=== PATIENT | female | born 1935 | race Caucasian/White ===

== ENCOUNTER 2019-05-31 08:03 | Inpatient (IN) | payer MEDICARE, BC ==
[~2019-05-31] VITALS: Ht 149.9 cm; Wt 48.2 kg
[~2019-05-31 08:03] MED LIST: ACET500C5 PO; ASPI325T30 PO; ATOR10TA65 PO; CALC1TAB80 PO; CEPH-443 PO; DEXL60CA2 PO; DICY10CA40 PO; EZET10TA31 PO; HYDR-3672 PO; IBUP-1542 PO; ISOS30TA67 PO; NAPR-985 PO; SUCR1TAB56 PO; TRAM50TA2 PO; VERA240C10 PO
[2019-05-31] MEDS ORDERED: IOHEXOL 100 ML ONE (09:25)
[2019-05-31] MEDS ORDERED: SOD CHLORIDE 0.9% 100 ML ONE (09:25)
--- NOTE | 2019-05-31 09:55 | ERD ---
ER Documentation Chief Complaint Chief Complaint C/O DIZZINESS, CP WITH PAIN RADIATES TO NECK, LEFT ARM SINCE WOKE UP HPI 84-year-old female brought to the emergency department by her daughter for evaluation of chest discomfort. Patient started by having neck discomfort yesterday. She was seen and evaluated by her doctor and recommended an MRI which is pending. She had no trauma associated with the neck pain or other symptoms. Today she then began developing a nonspecific chest discomfort in the left upper part of her chest in one specific location. It did not radiate. Of note, the triage note indicates that it radiates to her neck, but this is actually 2 separate pain that she is having as she describes it. She reports no shortness of breath, palpitations, diaphoresis. She reports no fevers, chills, cough, hemoptysis. ROS All systems reviewed and are negative except as per history of present illness. Medications Home Meds Active Scripts Acetaminophen* (Tylophen*) 500 Mg Capsule, 1 CAP PO Q6H PRN for PAIN AND OR ELEVATED TEMP, #20 CAP Prov:BETINA CHENG NP 10/25/16 Tramadol HCl (Tramadol HCl) 50 Mg Tablet, 50 MG PO Q6 PRN for SEVERE PAIN LEVEL 7-10, #20 TAB Prov:BETINA CHENG NP 10/25/16 Sucralfate* (Carafate*) 1 Gm Tab, 1 GM PO QID for GASTROINTESTINAL UPSET, #30 TAB Prov:VAMSHI CASILLAS MD 06/24/16 Naproxen* (Naprosyn*) 500 Mg Tablet, 500 MG PO BID PRN for PAIN AND/OR INFLAMMATION, #30 TAB Prov:VAMSHI CASILLAS MD 06/24/16 Acetaminophen* (Tylophen*) 500 Mg Capsule, 1 CAP PO Q6H PRN for PAIN AND OR ELEVATED TEMP, #20 CAP Prov:BETINA CHENG NP 05/17/16 Dicyclomine HCl (Dicyclomine HCl) 10 Mg Capsule, 10 MG PO QID, #20 CAP Prov:BETINA CHENG NP 05/17/16 Cephalexin* (Keflex*) 500 Mg Capsule, 500 MG PO Q6 for 7 Days, #28 CAP Prov:BETINA CHENG NP 05/17/16 Ibuprofen* (Motrin*) 600 Mg Tab, 600 MG PO Q8 for PAIN, #30 TAB Prov:ANGIE ONOFRE MD 03/11/16 Cephalexin* (Keflex*) 500 Mg Capsule, 500 MG PO TID for 5 Days, CAP Prov:ANGIE ONOFRE MD 03/11/16 Atorvastatin Calcium (Atorvastatin Calcium) 10 Mg Tab, 20 MG PO HS, #60 TAB Prov:THADDEUS DHILLON MD 06/30/15 Reported Medications Isosorbide Mononitrate* (Isosorbide Mononitrate*) 30 Mg Tab.er.24h, 30 MG PO DAILY, TAB 06/24/16 Hydralazine Hcl* (Hydralazine Hcl*) 50 Mg Tab, 100 MG PO TID, #180 TAB 06/24/16 Aspirin* (Aspirin*) 325 Mg Tablet, 325 MG PO DAILY, TAB 06/28/15 Ezetimibe* (Zetia*) 10 Mg Tablet, 10 MG PO DAILY, TAB 06/28/15 Calcium Carbonate/Vitamin D3 (Oysco 500+D Tablet) 1 Tab Tablet, 1 TAB PO BID 06/28/15 Verapamil Hcl* (Verelan*) 240 Mg Cap24h.pel, 240 MG PO DAILY, CAP 06/28/15 Dexlansoprazole (Dexilant) 60 Mg Cap.mp, 60 MG PO DAILY, CAP 06/28/15 Allergies Allergies: Coded Allergies: olmesartan (Verified Allergy, Severe, 03/11/16) BODY SWOLLEN rice (Verified Allergy, Unknown, SOB, 03/11/16) PMhx/Soc History of Surgery: No Anesthesia Reaction: No Hx Neurological Disorder: No Hx Respiratory Disorders: No Hx Cardiac Disorders: Yes (htn; cholesterol) Hx Psychiatric Problems: No Hx Alcohol Use: No Hx Substance Use: No Hx Tobacco Use: No Smoking Status: Never smoker FmHx Noncontributory with supportive family at the bedside Physical Exam Vitals Vital Signs Date Temp Pulse Resp B/P (MAP) Pulse Ox O2 O2 Flow FiO2 Time Delivery Rate 05/31/19 64 23 117/83 100 Room Air 08:47 (94) 05/31/19 97.9 63 18 142/70 95 08:15 (94) Physical Exam GENERAL: Frail, elderly female in no acute distress HEENT: Pupils equal, round, and reactive to light. EOMI. There is no scleral icterus. NECK: C-spine is soft and supple, there is no meningismus. There is no cervical lymphadenopathy. LUNGS: Clear to auscultation bilaterally. There are no rales, wheezes or rhonchi. Point tenderness to the left upper chest wall HEART: Regular rate and rhythm, no murmurs, clicks, rubs or gallops. ABDOMEN: Soft, non-tender, non-distended. There are bowel sounds in all four quadrants. No rebound or guarding. EXTREMITIES: There is no peripheral cyanosis or edema. No focal swelling or erythema. NEURO: The patient moves all four extremities with 5/5 strength. Cranial nerves II - XII are intact. Normal gait. Alert and oriented SKIN: There is no apparent rash or petechiae. HEME/LYMPHATIC: There is no evidence of excessive bruising or lymphedema. PSYCHIATRIC: The patient does not appear anxious or depressed. Result Diagram: 05/31/19 0839 05/31/19 0839 Results 24 hrs Laboratory Tests Test 05/31/19 08:39 White Blood Count 7.0 10^3/ul Red Blood Count 4.43 10^6/ul Hemoglobin 11.8 g/dl Hematocrit 35.7 % Mean Corpuscular Volume 80.6 fl Mean Corpuscular Hemoglobin 26.6 pg Mean Corpuscular Hemoglobin Concent 33.1 g/dl Red Cell Distribution Width 13.2 % Platelet Count 322 10^3/UL Mean Platelet Volume 9.5 fl Immature Granulocytes % 0.300 % Neutrophils % 56.7 % Lymphocytes % 28.1 % Monocytes % 11.0 % Eosinophils % 2.9 % Basophils % 1.0 % Nucleated Red Blood Cells % 0.0 /100WBC Immature Granulocytes # 0.020 10^3/ul Neutrophils # 4.0 10^3/ul Lymphocytes # 2.0 10^3/ul Monocytes # 0.8 10^3/ul Eosinophils # 0.2 10^3/ul Basophils # 0.1 10^3/ul Nucleated Red Blood Cells # 0.0 10^3/ul Sodium Level 138 mmol/L Potassium Level 3.7 mmol/L Chloride Level 99 mmol/L Carbon Dioxide Level 30 mmol/L Anion Gap 9 Blood Urea Nitrogen 13 mg/dl Creatinine 0.82 mg/dl Est Glomerular Filtrat Rate mL/min mL/min Glucose Level 104 mg/dl Calcium Level 9.2 mg/dl Total Bilirubin 0.6 mg/dl Direct Bilirubin 0.00 mg/dl Indirect Bilirubin 0.6 mg/dl Aspartate Amino Transf (AST/SGOT) 26 IU/L Alanine Aminotransferase (ALT/SGPT) 26 IU/L Alkaline Phosphatase 68 IU/L Troponin I 0.028 ng/ml Total Protein 7.0 g/dl Albumin 4.1 g/dl Globulin 2.90 g/dl Albumin/Globulin Ratio 1.41 Current Medications Medications Dose Sig/Hawk Start Time Status Last (Trade) Ordered Route PRN Stop Time Admin Dose Reason Admin IV Flush 10 ml STK-MED 05/31/19 DC 05/31/19 (NS 10 ml) ONCE .ROUTE 09:05/31/19 09:43 09:26 Sodium 100 ml @ ud STK-MED 05/31/19 DC 05/31/19 Chloride ONCE .ROUTE 09:05/31/19 09:43 09:26 Iohexol 100 ml @ ud STK-MED 05/31/19 DC 05/31/19 ONCE .ROUTE 09:25 05/31/19 09:43 09:26 Procedures/MDM Patient was taken to a room, seen and evaluated. Comfort measures were initiated. Diagnostic tests were ordered and reviewed. 3 LEAD RHYTHM STRIP: Normal sinus rhythm without ectopy EK lead EKG reviewed by myself: Normal Sinus Rhythm Left bundle branch block No ST elevation, depression, or T wave inversion Impression: Left bundle branch block RADIOLOGY: Reviewed with the radiologist REEVALUATION: 0955: Diagnostic tests were appreciated discussed with the patient and her family. The patient remained comfortable and stable. Patient and family were offered inpatient observation for serial troponins, but they felt comfortable that the patient was feeling better and wished to take the patient home. MEDICAL DECISION MAKING: Patient presents with chest pain of uncertain etiology. Differential diagnosis considered includes acute myocardial infarction, pulmonary embolism, as well as vascular and pulmonary concerns. I have reviewed the patients clinical risk factors, EKG, lab studies and imaging. At this time, her EKG demonstrates a left bundle branch block which makes it somewhat difficult to interpret her symptoms. Her troponin is negative. The constellation of symptoms do not appear to be consistent with an acute coronary event and the CT scan is ruled out significant thromboembolism, pneumonia or other high-risk concerns. At this time, patient appears to be comfortable and does not wish to stay for further observation and appears to be appropriate for discharge. Departure Diagnosis: Primary Impression: Chest pain Condition: Stable Patient Instructions: Chest Pain, Uncertain Cause Additional Instructions: Consulte a yu mdico para el seguimiento segn lo discutido. Lleve feliciano copia de los resultados de yu prueba, si corresponde, a esta visita de seguimiento. Consulte a yu mdico o regrese aqu si giovanny sntomas no mejoran favian se esperaba. En cualquier momento, regrese al departamento de emergencias por cualquier cambio o empeoramiento en giovanny sntomas. MATTHEW LAWTON May 31, 2019 09:55
[2019-05-31] MEDS ORDERED: DOXA2TAB PO (10:01)
[2019-05-31] MEDS ORDERED: ALEN70TA5 PO (10:02)
[2019-05-31] MEDS ORDERED: GABA300C16 PO (10:02)
[2019-05-31] MEDS ORDERED: CARV3.1260 PO (10:02)
[2019-05-31] MEDS ORDERED: CALC-686 PO (10:03)
[2019-05-31] MEDS ORDERED: PANT40TA4 PO (10:03)
[2019-05-31] MEDS ORDERED: HYDR25TA6 PO (10:04)
[2019-05-31] MEDS ORDERED: MONT10TA24 PO (10:04)
[2019-05-31] MEDS ORDERED: FER325 PO (10:04)
[2019-05-31] MEDS ORDERED: AMLO5TAB4 PO (10:04)
[2019-05-31] MEDS ORDERED: ACETAMINOPHEN 325 MG TAB PO PRN ×2 (10:30)
[2019-05-31] MEDS ORDERED: ONDANSETRON 4 MG INJ IV PRN ×2 (10:30)
[2019-05-31] MEDS ORDERED: morphine 2 MG INJ IV PRN (10:30)
[2019-05-31] MEDS ORDERED: NACL 0.9% 3 ML SYG IV SCH (10:30)
[2019-05-31] MEDS ORDERED: HYDROCODONE/APAP (5/325) TAB PO PRN (10:30)
--- NOTE | 2019-05-31 14:19 | HP ---
Date/Time of Note Date/Time of Note DATE: 05/31/19 TIME: 14:19 Assessment/Plan VTE Prophylaxis Pharmacological prophylaxis: other Lines/Catheters IV Catheter Type (from Nrsg): Peripheral IV Assessment/Plan Hospital Course Patient is a female with past medical history significant for hypertension, GERD, anemia who presents to [facility] for new onset chest pain with radiation to her left arm. Patient states that she woke t his morning with sensation of left-sided chest pain subsequently radiated to her arm. Currently patient has minimal chest pain but with no residual arm effects. Of note patient recently did go to a primary care provider for a headache which has since significantly resolved. Patient denies any changes to her medications, diets or any new physical activity, patient denies severe shortness of breath, nausea, vomiting, abdominal pain, bowel or bladder dysfunction, leg pain Objective Physical exam General: Patient is laying in bed and answers questions appropriately Mentation: Patient is alert and oriented 4, Head: Normocephalic atraumatic Eyes: EOMI, pupils reactive to light Neck: Supple, nontender, midline Respiratory: Clear to auscultation bilaterally Cardiovascular: regular rate, no obvious murmurs Gastrointestinal: non-tender to palpation, bowel sounds heard. Neurological: Moves all extremities spontaneously Muscular skeletal: Pain to palpation of left chest wall Assessment and plan Chest pain -Aspirin, statin -Continue to trend troponins -Cardiology consulted for questionable new versus old left bundle branch block -Chest pain is very likely muscular skeletal as patient's pain can be reproduced with palpation of the chest -Monitor closely -Pain control as needed -Echocardiogram Headache with neck pain, resolving -Patient went to see her PCP yesterday for this problem, this problem is resolving -Patient has MRI scheduled outpatient -No acute worsening issues with this issue. Hypertension -Continue home meds GERD -Continue home meds Anemia -Monitor closely Possible pulmonary hypertension -Seen on CT angiogram -Monitor Disposition -Cardiology consult pending, continue to trend troponins. Result Diagram: 05/31/19 0839 05/31/19 0839 Results 24hrs Laboratory Tests Test 05/31/19 08:39 White Blood Count 7.0 Red Blood Count 4.43 Hemoglobin 11.8 L Hematocrit 35.7 L Mean Corpuscular Volume 80.6 L Mean Corpuscular Hemoglobin 26.6 L Mean Corpuscular Hemoglobin Concent 33.1 Red Cell Distribution Width 13.2 Platelet Count 322 Mean Platelet Volume 9.5 # Immature Granulocytes % 0.300 Neutrophils % 56.7 Lymphocytes % 28.1 Monocytes % 11.0 Eosinophils % 2.9 Basophils % 1.0 Nucleated Red Blood Cells % 0.0 Immature Granulocytes # 0.020 Neutrophils # 4.0 Lymphocytes # 2.0 Monocytes # 0.8 Eosinophils # 0.2 Basophils # 0.1 Nucleated Red Blood Cells # 0.0 Sodium Level 138 Potassium Level 3.7 Chloride Level 99 Carbon Dioxide Level 30 Anion Gap 9 Blood Urea Nitrogen 13 Creatinine 0.82 Est Glomerular Filtrat Rate mL/min Glucose Level 104 Calcium Level 9.2 Total Bilirubin 0.6 Direct Bilirubin 0.00 Indirect Bilirubin 0.6 Aspartate Amino Transf (AST/SGOT) 26 Alanine Aminotransferase (ALT/SGPT) 26 Alkaline Phosphatase 68 Troponin I 0.028 Total Protein 7.0 Albumin 4.1 Globulin 2.90 Albumin/Globulin Ratio 1.41 HPI/ROS Admit Date/Time Admit Date/Time PMH/Family/Social Past Medical History Medications Current Medications Amlodipine Besylate (Norvasc) 5 mg DAILY PO ; Start 06/01/19 at 09:00 Carvedilol (Coreg) 3.125 mg BID PO ; Start 05/31/19 at 21:00 Doxazosin Mesylate (Cardura) 2 mg HS PO ; Start 05/31/19 at 21:00 Ferrous Sulfate (Ferrous Sulfate (Ec)) 325 mg DAILY PO ; Start 06/01/19 at 09:00 Gabapentin (Neurontin) 300 mg DAILY PO ; Start 06/01/19 at 09:00 Hydrochlorothiazide (Hydrochlorothiazide) 25 mg DAILY PO ; Start 06/01/19 at 09:00 Montelukast Sodium (Singulair) 10 mg QHS PO ; Start 05/31/19 at 21:00 Pantoprazole (Protonix Tab) 40 mg AC BREAKFAST PO ; Start 06/01/19 at 07:00 IV Flush (NS 3 ml) 3 ml PER PROTOCOL IV ; Start 05/31/19 at 10:30 Ondansetron HCl (Zofran Inj) 4 mg Q6H PRN IV NAUSEA/VOMITING; Start 05/31/19 at 10:30 Acetaminophen (Tylenol Tab) 650 mg Q6H PRN PO .PAIN 1-3 OR TEMP; Start 05/31/19 at 10:30 Acetaminophen/ Hydrocodone Bitart ([place] (5/325)) 1 tab Q6H PRN PO .PAIN 4-6; Start 05/31/19 at 10:30 Morphine Sulfate (morphine) 2 mg Q4H PRN IV .PAIN 7-10; Start 05/31/19 at 10:30 Coded Allergies: olmesartan (Verified Allergy, Severe, 05/31/19) BODY SWOLLEN rice (Verified Allergy, Unknown, SOB, 05/31/19) Social History Smoking Status: Never smoker Exam/Review of Systems Vital Signs Vitals Vital Signs Date Temp Pulse Resp B/P (MAP) Pulse Ox O2 O2 Flow FiO2 Time Delivery Rate 05/31/19 68 23 127/66 98 Room Air 13:00 (86) 05/31/19 97.9 08:15 ANGIE MARCOS May 31, 2019 14:19
[2019-05-31] MEDS ORDERED: ASPIRIN 325 MG TAB PO ONE (14:30)
[2019-05-31 15:59] VITALS: BP 157/71; PULSE 91; RESP 20
[2019-05-31 16:16] VITALS: Ht 149.9 cm; Wt 48.2 kg
--- NOTE | 2019-05-31 17:09 | CONS ---
DATE OF ADMISSION: 05/31/2019 DATE OF CONSULTATION: TYPE OF CONSULTATION: Cardiology. REFERRING PHYSICIAN: Dr. Ananth Akhtar. REASON FOR EVALUATION: Precordial chest pain. HISTORY OF PRESENT ILLNESS: Ms. Alatorre is a pleasant 84-year-old, she is a [place]an speaking woman wi th history of hypertension, dyslipidemia, history of GERD in the past, who comes to the hospital for precordial chest pain. The patient has left-sided pressure-like sensation in the chest which subsequ ently resolved and then came back again. The patient says that Dr. Cottrell is her primary doctor. T he patient has an EKG which shows left bundle branch block, although I cannot locate an EKG in the art now, and I am going to try to obtain another one. When the patient presented, she still continue d to have mild chest discomfort. The patient will be treated for a presumed diagnosis of ACS. We ar e going to monitor her closely. I am going to initiate her medications in the form of beta blockers and anticoagulation. Will follow closely. Based on initial assessment here, it appears that the pat ient did not rule in for acute myocardial infarction. Will check another set of troponins and monito r closely. If patient rules out for acute myocardial infarction, will likely have to have inpatient risk stratification with a stress test. PAST MEDICAL HISTORY: 1. Hypertension. 2. Dyslipidemia. 3. History of gastroesophageal reflux disease. 4. Left bundle branch block, probably chronic. ALLERGIES: ALLERGIC TO LOSARTAN AND RICE. SOCIAL HISTORY: The patient does not smoke, does not drink, does not use drugs. FAMILY HISTORY: Positive for diabetes and hypertension. MEDICATIONS: Here include: 1. Amlodipine 5 mg a day. 2. Iron supplement. 3. Gabapentin. 4. Aspirin 81 mg daily. 5. b.i.d. 6. Hydrocodone. 7. Morphine sulfate. REVIEW OF SYSTEMS: CONSTITUTIONAL: No fevers, no chills, no recent weight change. HEENT: No JVD. CARDIAC: No chest pain reported now. RESPIRATORY: Short of breath. GASTROINTESTINAL: No nausea, vomiting. GENITOURINARY: No dysuria or hematuria. NEUROLOGIC: No focal neurologic deficit. PSYCHIATRIC: No known history of psychiatric disease. PHYSICAL EXAMINATION: VITAL SIGNS: Temperature is 97.9, heart rate 68, blood pressure is 120/76. GENERAL: She is thin woman in no acute distress, alert and oriented x3 in [place], aware of her cond ition. HEENT: Head is normocephalic. NECK: Supple. JVD 6-7 cm. HEART: Regular, soft, nontender murmur. PMI is nondisplaced. There is no thrill. LUNGS: Coarse at the base. ABDOMEN: Distended, bowel sounds are present. There is no hepatosplenomegaly. GENITOURINARY: Intact. EXTREMITIES: No cyanosis. Trace edema. LABORATORY DATA: Sodium 130, potassium 3.7, BUN is 13, creatinine is normal. Troponin 0.02. White blood cell count is 7.0, hemoglobin is 11.8, platelets 322. ECG read by me shows sinus rhythm with first-degree AV block and left bundle branch block. ASSESSMENT AND PLAN: 1. Precordial chest pain. The patient's precordial chest pain suggestive of angina. The patient ji s not ruled in for acute myocardial infarction now. I think for now, conservative treatment expected . We will check another set of troponins. If patient remains to be symptomatic, we will consider fu rther recertification with a stress test. 2. First-degree atrioventricular block. The patient on a small dose of beta faina, which is appro priate. Continue to monitor left bundle bunch block. Continue to follow. I doubt acute ischemic ev ent now with anterior myocardial infarction with block, likely chronic finding. We will follow up with a 2D echo. 3. Gastroesophageal reflux disease. Continue proton pump inhibitor therapy is indicated. 4. Dyslipidemia. We will check fasting lipids. I would like to thank Dr. Akhtar for referring this patient for my evaluation. Dictated By: OLU JACINTO MD ML/NTS Conf#: [id number] DID#: [id number] CC: ANANTH AKHTAR MD;*EndCC*
[2019-05-31 20:00] VITALS: BP 114/75; PULSE 74; RESP 18
[2019-05-31] MEDS: DOXAZOSIN 2 MG TAB PO SCH (20:10)
[2019-05-31] MEDS: ATORVASTATIN 80 MG TAB PO SCH (20:11)
[2019-05-31] MEDS: MONTELUKAST 10 MG TAB PO SCH (20:11)
[2019-06-01] VITALS: BP 109/63; PULSE 74; RESP 18
[2019-06-01 04:00] VITALS: BP 111/57; PULSE 63; RESP 17
[2019-06-01] MEDS: PANTOPRAZOLE (EC) 40 MG TAB PO SCH (06:34)
[2019-06-01 07:49] VITALS: BP 146/65; PULSE 68; RESP 22
[2019-06-01] MEDS: GABAPENTIN 300 MG CAP PO SCH (08:16)
[2019-06-01] MEDS: HYDROCHLOROTHIAZIDE 25 MG TAB PO SCH (08:17)
[2019-06-01] MEDS: ASPIRIN 81 MG TAB PO SCH (08:17)
[2019-06-01] MEDS: FERROUS SULFATE (EC) 325 MG TAB PO SCH (08:17)
[2019-06-01] MEDS: AMLODIPINE 5 MG TAB PO SCH (08:18)
--- NOTE | 2019-06-01 11:00 | CONS ---
Consult Date/Type/Reason Admit Date/Time May 31, 2019 at 10:17 Initial Consult Date Date/Time of Note DATE: 06/01/19 TIME: 10:56 Subjective NO acute events - pt comfortable - no CP now - troponin going down - plan for stress test tomorrow ROS: No fever, no chills, no nausea, no vomiting, no diarrhea/constipation No recent weight changes No chest pain, no PND, no orthopnea - mild SOB No dizziness, blurred vision No thirst, no heat or cold intolerance Objective Vitals Vital Signs Date Temp Pulse Resp B/P (MAP) Pulse Ox O2 O2 Flow FiO2 Time Delivery Rate 06/01/19 98.0 68 22 146/65 96 Room Air 07:49 (92) Intake and Output 05/31/19 05/31/19 06/01/19 1515:00 23:00 07:00 IntakeIntake Total 240 ml BalanceBalance 240 ml Exam General: WN/WD/NAD, AOx 3 [place] HEENT: Unicetric/atraumatic/EOMI (follows commands) NECK: JVD elevated, no thyromegaly Lymph: no lymphadenopathy HEART: regular with no S3, II/ systolic murmur at apex LUNGS: Coarse sounds ABD: soft, NT, ND, +BS : Intact Neuro: non focal SKIN: chronic changes EXT: trace edema Results/Medications Result Diagram: 06/01/1952206/01/19 0523 Results 24 hrs Laboratory Tests Test 05/31/19 14:20 05/31/19 19:57 06/01/19 05:23 Creatine Kinase 45 42 Creatine Kinase Index 2.7 3.1 Creatinine Kinase MB (Mass) 1.20 1.31 Troponin I 0.341 *H 0.417 *H 0.188 *H White Blood Count 7.4 Red Blood Count 4.21 Hemoglobin 11.4 L Hematocrit 34.4 L Mean Corpuscular Volume 81.7 L Mean Corpuscular Hemoglobin 27.1 L Mean Corpuscular Hemoglobin Concent 33.1 Red Cell Distribution Width 13.4 Platelet Count 321 Mean Platelet Volume 9.5 Immature Granulocytes % 0.100 Neutrophils % 49.2 Lymphocytes % 35.9 Monocytes % 11.4 H Eosinophils % 2.6 Basophils % 0.8 Nucleated Red Blood Cells % 0.0 Immature Granulocytes # 0.010 Neutrophils # 3.7 Lymphocytes # 2.7 Monocytes # 0.9 Eosinophils # 0.2 Basophils # 0.1 Nucleated Red Blood Cells # 0.0 Sodium Level 139 Potassium Level 3.7 Chloride Level 101 Carbon Dioxide Level 31 Anion Gap 7 Blood Urea Nitrogen 16 Creatinine 0.87 Est Glomerular Filtrat Rate mL/min Glucose Level 96 Hemoglobin A1c 5.0 Calcium Level 9.1 Magnesium Level 2.0 Total Bilirubin 0.7 Direct Bilirubin 0.00 Indirect Bilirubin 0.7 Aspartate Amino Transf (AST/SGOT) 27 Alanine Aminotransferase (ALT/SGPT) 27 Alkaline Phosphatase 57 Total Protein 6.3 Albumin 3.7 Globulin 2.60 Albumin/Globulin Ratio 1.42 Triglycerides Level 95 Cholesterol Level 187 LDL Cholesterol, Calculated 116 HDL Cholesterol 52 Cholesterol/HDL Ratio 3.5 Thyroid Stimulating Hormone (TSH) 1.700 Home Meds Reported Medications Amlodipine Besylate* (Norvasc*) 5 Mg Tablet, 5 MG PO DAILY, TAB 05/31/19 Hydrochlorothiazide* (Hydrochlorothiazide*) 25 Mg Tab, 25 MG PO DAILY, #30 TAB 05/31/19 Ferrous Sulfate* (Ferrous Sulfate*) 325 Mg Tabec, 325 MG PO DAILY, TAB 05/31/19 Montelukast Sodium* (Montelukast Sodium*) 10 Mg Tablet, 10 MG PO QHS, #30 TAB 05/31/19 Pantoprazole* (Pantoprazole*) 40 Mg Tablet.dr, 40 MG PO AC BREAKFAST, TAB 05/31/19 Calcium Carbonate/Vitamin D3 (Calcium 500 mg Chewable Tablet) 1 Each Tab.chew, 1 EACH PO BID, TAB.CHEW 05/31/19 Carvedilol* (Carvedilol*) 3.125 Mg Tablet, 3.125 MG PO BID, #60 TAB 05/31/19 Gabapentin* (Gabapentin*) 300 Mg Capsule, 300 MG PO DAILY, #60 CAP 05/31/19 Alendronate Sodium* (Fosamax*) 70 Mg Tablet, 70 MG PO Q SAT, #4 TAB 05/31/19 Doxazosin Mesylate* (Doxazosin Mesylate*) 2 Mg Tablet, 2 MG PO HS, TAB 05/31/19 Discontinued Reported Medications Isosorbide Mononitrate* (Isosorbide Mononitrate*) 30 Mg Tab.er.24h, 30 MG PO DAILY, TAB 06/24/16 Hydralazine Hcl* (Hydralazine Hcl*) 50 Mg Tab, 100 MG PO TID, #180 TAB 06/24/16 Aspirin* (Aspirin*) 325 Mg Tablet, 325 MG PO DAILY, TAB 06/28/15 Ezetimibe* (Zetia*) 10 Mg Tablet, 10 MG PO DAILY, TAB 06/28/15 Calcium Carbonate/Vitamin D3 ([place] 500+D Tablet) 1 Tab Tablet, 1 TAB PO BID 06/28/15 Verapamil Hcl* (Verelan*) 240 Mg Cap24h.pel, 240 MG PO DAILY, CAP 06/28/15 Dexlansoprazole (Dexilant) 60 Mg Cap.mp, 60 MG PO DAILY, CAP 06/28/15 Discontinued Scripts Acetaminophen* (Tylophen*) 500 Mg Capsule, 1 CAP PO Q6H PRN for PAIN AND OR ELEVATED TEMP, #20 CAP Prov:BETINA CHENG NP 10/25/16 Tramadol HCl (Tramadol HCl) 50 Mg Tablet, 50 MG PO Q6 PRN for SEVERE PAIN LEVEL 7-10, #20 TAB Prov:BETINA CHENG NP 10/25/16 Sucralfate* (Carafate*) 1 Gm Tab, 1 GM PO QID for GASTROINTESTINAL UPSET, #30 TAB Prov:VAMSHI CASILLAS MD 06/24/16 Naproxen* (Naprosyn*) 500 Mg Tablet, 500 MG PO BID PRN for PAIN AND/OR INFLAMMATION, #30 TAB Prov:VAMSHI CASILLAS MD 06/24/16 Acetaminophen* (Tylophen*) 500 Mg Capsule, 1 CAP PO Q6H PRN for PAIN AND OR ELEVATED TEMP, #20 CAP Prov:BETINA CHENG NP 05/17/16 Dicyclomine HCl (Dicyclomine HCl) 10 Mg Capsule, 10 MG PO QID, #20 CAP Prov:BETINA CHENG NP 05/17/16 Cephalexin* (Keflex*) 500 Mg Capsule, 500 MG PO Q6 for 7 Days, #28 CAP Prov:BETINA CHENG NP 05/17/16 Ibuprofen* (Motrin*) 600 Mg Tab, 600 MG PO Q8 for PAIN, #30 TAB Prov:ANGIE ONOFRE MD 03/11/16 Cephalexin* (Keflex*) 500 Mg Capsule, 500 MG PO TID for 5 Days, CAP Prov:ANGIE ONOFRE MD 03/11/16 Atorvastatin Calcium (Atorvastatin Calcium) 10 Mg Tab, 20 MG PO HS, #60 TAB Prov:THADDEUS DHILLON MD 06/30/15 Medications Current Medications Amlodipine Besylate (Norvasc) 5 mg DAILY PO Last administered on 06/01/19 08:18; Admin Dose 5 MG; Start 06/01/19 at 09:00 Carvedilol (Coreg) 3.125 mg BID PO Last administered on 06/01/19 08:17; Admin Dose 3.125 MG; Start 05/31/19 at 21:00 Doxazosin Mesylate (Cardura) 2 mg HS PO Last administered on 05/31/19 20:10; Admin Dose 2 MG; Start 05/31/19 at 21:00 Ferrous Sulfate (Ferrous Sulfate (Ec)) 325 mg DAILY PO Last administered on 06/01/19 08:17; Admin Dose 325 MG; Start 06/01/19 at 09:00 Gabapentin (Neurontin) 300 mg DAILY PO Last administered on 06/01/19 08:16; Admin Dose 300 MG; Start 06/01/19 at 09:00 Hydrochlorothiazide (Hydrochlorothiazide) 25 mg DAILY PO Last administered on 06/01/19 08:17; Admin Dose 25 MG; Start 06/01/19 at 09:00 Montelukast Sodium (Singulair) 10 mg QHS PO Last administered on 05/31/19at 20:11; Admin Dose 10 MG; Start 05/31/19 at 21:00 Pantoprazole (Protonix Tab) 40 mg AC BREAKFAST PO Last administered on 06/01/19 06:34; Admin Dose 40 MG; Start 06/01/19 at 07:00 IV Flush (NS 3 ml) 3 ml PER PROTOCOL IV ; Start 05/31/19 at 10:30 Ondansetron HCl (Zofran Inj) 4 mg Q6H PRN IV NAUSEA/VOMITING; Start 05/31/19 at 10:30 Acetaminophen (Tylenol Tab) 650 mg Q6H PRN PO .PAIN 1-3 OR TEMP; Start 05/31/19 at 10:30 Acetaminophen/ Hydrocodone Bitart ([place] (5/325)) 1 tab Q6H PRN PO .PAIN 4-6; Start 05/31/19 at 10:30 Morphine Sulfate (morphine) 2 mg Q4H PRN IV .PAIN 7-10; Start 05/31/19 at 10:30 Aspirin (Aspirin) 81 mg DAILY PO Last administered on 06/01/19at 08:17; Admin Dose 81 MG; Start 06/01/19 at 09:00 Atorvastatin Calcium (Lipitor) 80 mg HS PO Last administered on 05/31/19at 20:11; Admin Dose 80 MG; Start 05/31/19 at 21:00 Assessment/Plan Hospital Course (Demo Recall) 1. NSTEMI - troponins down no - no CP- will plan for stress test tomorrow - pt agrees - given only small elevation, will NOT start heparn gtt now 2. Chest pain is very likely muscular skeletal as patient's pain can be re produced with palpation of the chest - might have some pleuritic component, but best to re-strtiy for safety. 3. Headache with neck pain, resolving - -Patient went to see her PCP yesterday for this problem, this problem is resolving - better now 4. Hypertension - well controlled - Continue home meds 5. GERD - -Continue home meds 6 . Anemia - no evidence of bleeding now. OLU JACINTO MD Jun 01, 2019 11:00
[2019-06-01 11:26] VITALS: BP 117/58; PULSE 66; RESP 20
--- NOTE | 2019-06-01 12:16 | PN ---
Date/Time of Note Date/Time of Note DATE: 06/01/19 TIME: 12:15 Objective Vitals Vital Signs Date Temp Pulse Resp B/P (MAP) Pulse Ox O2 O2 Flow FiO2 Time Delivery Rate 06/01/19 97.8 66 20 117/58 96 Room Air 11:26 (77) Intake and Output 05/31/19 05/31/19 06/01/19 1515:00 23:00 07:00 IntakeIntake Total 240 ml BalanceBalance 240 ml Results Result Diagram: 06/01/19 0523 06/01/19 0523 Medications Medications Current Medications Amlodipine Besylate (Norvasc) 5 mg DAILY PO Last administered on 06/01/19 08:18; Admin Dose 5 MG; Start 06/01/19 at 09:00 Carvedilol (Coreg) 3.125 mg BID PO Last administered on 06/01/19 08:17; Admin Dose 3.125 MG; Start 05/31/19 at 21:00 Doxazosin Mesylate (Cardura) 2 mg HS PO Last administered on 05/31/19at 20:10; Admin Dose 2 MG; Start 05/31/19 at 21:00 Ferrous Sulfate (Ferrous Sulfate (Ec)) 325 mg DAILY PO Last administered on 06/01/19 08:17; Admin Dose 325 MG; Start 06/01/19 at 09:00 Gabapentin (Neurontin) 300 mg DAILY PO Last administered on 06/01/19at 08:16; Admin Dose 300 MG; Start 06/01/19 at 09:00 Hydrochlorothiazide (Hydrochlorothiazide) 25 mg DAILY PO Last administered on 06/01/19 08:17; Admin Dose 25 MG; Start 06/01/19 at 09:00 Montelukast Sodium (Singulair) 10 mg QHS PO Last administered on 05/31/19 20:11; Admin Dose 10 MG; Start 05/31/19 at 21:00 Pantoprazole (Protonix Tab) 40 mg AC BREAKFAST PO Last administered on 06/01/19at 06:34; Admin Dose 40 MG; Start 06/01/19 at 07:00 IV Flush (NS 3 ml) 3 ml PER PROTOCOL IV ; Start 05/31/19 at 10:30 Ondansetron HCl (Zofran Inj) 4 mg Q6H PRN IV NAUSEA/VOMITING; Start 05/31/19 at 10:30 Acetaminophen (Tylenol Tab) 650 mg Q6H PRN PO .PAIN 1-3 OR TEMP; Start 05/31/19 at 10:30 Acetaminophen/ Hydrocodone Bitart ([place] (5/325)) 1 tab Q6H PRN PO .PAIN 4-6; Start 05/31/19 at 10:30 Morphine Sulfate (morphine) 2 mg Q4H PRN IV .PAIN 7-10; Start 05/31/19 at 10:30 Aspirin (Aspirin) 81 mg DAILY PO Last administered on 06/01/19at 08:17; Admin Dose 81 MG; Start 06/01/19 at 09:00 Atorvastatin Calcium (Lipitor) 80 mg HS PO Last administered on 05/31/19at 20:11; Admin Dose 80 MG; Start 05/31/19 at 21:00 VTE Prophylaxis Risk score (from Ns)>0 risk: 3 SCD applied (from [facility] [place]): Yes Lines/Catheters IV Catheter Type: Meza in Place: No Assessment/Plan Hospital Course Subjective Patient feeling much better, no chest pain Objective Physical exam General: Patient is laying in bed and answers questions appropriately Mentation: Patient is alert and oriented 4, Head: Normocephalic atraumatic Eyes: EOMI, pupils reactive to light Neck: Supple, nontender, midline Respiratory: Clear to auscultation bilaterally Cardiovascular: regular rate, no obvious murmurs Gastrointestinal: non-tender to palpation, bowel sounds heard. Neurological: Moves all extremities spontaneously Assessment and plan Non-ST elevated [place] -Aspirin, statin -Troponins have down trended however was a mild elevation -Cardiology consulted for questionable new versus old left bundle branch block -Echocardiogram -Due to mild elevated troponin, cardiology has decided not to anticoagulate, stress test pending for tomorrow. Headache with neck pain, resolving -Patient went to see her PCP the day before admission for this problem, this problem is resolving -Patient has MRI scheduled outpatient -No acute worsening issues with this issue. Hypertension -Continue home meds GERD -Continue home meds Anemia -Monitor closely Possible pulmonary hypertension -Seen on CT angiogram -Monitor Disposition -Cardiology ordered stress test for tomorrow,. ANGIE MARCOS Jun 01, 2019 12:16
--- NOTE | 2019-06-01 14:25 | RADRPT ---
Echocardiogram Report Patient Name: NATHANAEL WHITESIDEPatient ID: [id number] : 1935 (84y 1m)Study Date: 05/31/2019 2:44:13 PM Gender: FAccession #: [id number] Tech: [id number] Location: ER Ref.Physician: ANGIE MARCOS Height(Cm): BSA: Weight(Kg): Quality: AdequateOrder Physician: ANGIE MARCOS Account #: Procedures: Echocardiographic Report: Transthoracic echocardiogram with complete 2D, M-Mode, and doppler examination. Indications: Chest Pain. Measurements: 2D/M Mode Doppler Measurement Value Normal Range Measurement Value Normal Range LVIDd 2D 3.0 [ 3.8 - 5.2 ] cm AV Peak Arya 2.1 [ 100.0 - 170.0 ] cm/se c LVIDs 2D 2.1 [ 2.2 - 3.5 ] cm AV Peak PG 18.0 [ 2.0 - 9.0 ] mmHg LVPWd 2D 0.9 [ 0.6 - 0.9 ] cm LVOT Peak Arya 1.5 [ 70.0 - 110.0 ] cm/sec IVSd 2D 0.8 [ 0.6 - 0.9 ] cm LVOT Peak PG 9.0 [ 2.0 - 6.0 ] mmHg EDV 2D 36.2 [ 46.0 - 106.0 ] ml MV E Peak Arya 1.1 [ 60.0 - 130.0 ] cm/sec ESV 2D 14.1 [ 14.0 - 42.0 ] ml MV A Peak Arya 0.4 [ 100.0 - 120.0 ] cm/se c EF 2D 61.0 [ 54.0 - 74.0 ] percent MV E/A 2.7 [ 0.8 - 1.5 ] ratio LA Dimen 2D 2.4 [ 2.7 - 3.8 ] cm MV PHT 53.0 [ 20.0 - 100.0 ] msec MV Decel Time 180 [ 104 - 258 ] msec MV Decel [place] 6 Lat E` Arya 0.1 [ 10.0 - 15.0 ] cm/sec Lateral E/E` 19.4 [ 1.0 - 2.0 ] ratio Med E` Arya 0.0 cm/sec MV E/A 2.7 [ 0.8 - 1.5 ] ratio MVA PHT 4.2 [ 2.0 - 4.0 ] cm2 TR Peak Arya 2.2 [ 100.0 - 280.0 ] cm/se c TR Peak PG 20.0 mmHg RVSP 20.0 [ 10.0 - 36.0 ] mmHg RA Pressure 3.0 mmHg Findings: Left Ventricle: Normal left ventricular systolic function. Normal left ventricular cavity size. Normal left ventricular wall thickness. Ejection fraction is visually estimated at 55-60 %. Tissue Doppler/Mitral Doppler indices are within normal limits. Right Ventricle: Normal right ventricular size. Normal right ventricular systolic function. Left Atrium: The left atrium is normal in size. Right Atrium: The right atrium is normal in size. Mitral Valve: Normal appearance of the mitral valve. Trace mitral regurgitation. Aortic Valve: Aortic valve Max velocity 2.10 m/sec. Max PG 18.00 mmHg. Aortic sclerosis without significant stenosis. Mild aortic valve regurgitation. Tricuspid Valve: Normal appearance of the tricuspid valve. The estimated Peak RVSP is 20 mmHg. Pulmonic Valve: Normal pulmonic valve appearance. There is trace pulmonic regurgitation. Pericardium: Normal pericardium with no significant pericardial effusion. Aorta: Normal aortic root. IVC: Normal size and normal respiratory collapse consistent with normal right atrial pressure. Conclusions: Normal left ventricular systolic function. Normal left ventricular cavity size. Normal left ventricular wall thickness. Ejection fraction is visually estimated at 55-60 %. Tissue Doppler/Mitral Doppler indices are within normal limits. Normal appearance of the mitral valve. Trace mitral regurgitation. Aortic valve Max velocity 2.10 m/sec. Max PG 18.00 mmHg. Aortic sclerosis without significant stenosis. Mild aortic valve regurgitation. n. Normal appearance of the tricuspid valve. The estimated Peak RVSP is 20 mmHg. Electronically Signed By: Aamir Pedro 2019-06-01 14:24:27 PDT
[2019-06-01 15:50] VITALS: BP 121/57; PULSE 67; RESP 20
[2019-06-01 19:59] VITALS: BP 105/55; PULSE 62; RESP 21
[2019-06-01] MEDS: ATORVASTATIN 80 MG TAB PO SCH (20:31)
[2019-06-01] MEDS: MONTELUKAST 10 MG TAB PO SCH (20:31)
[2019-06-01] MEDS: DOXAZOSIN 2 MG TAB PO SCH (20:36)
[2019-06-01] MEDS: SOD CHLORIDE 0.45% 1,000 ML IV SCH (23:43)
[2019-06-02] VITALS: BP 115/56; PULSE 67; RESP 18
[2019-06-02] MEDS: SOD CHLORIDE 0.45% 1,000 ML IV SCH (02:48)
[2019-06-02 04:00] VITALS: BP 114/63; PULSE 63; RESP 18
[2019-06-02] MEDS: PANTOPRAZOLE (EC) 40 MG TAB PO SCH (05:59)
[2019-06-02 07:18] VITALS: BP 121/57; PULSE 63; RESP 18
[2019-06-02] MEDS: HYDROCHLOROTHIAZIDE 25 MG TAB PO SCH (08:14)
[2019-06-02] MEDS: FERROUS SULFATE (EC) 325 MG TAB PO SCH (08:14)
[2019-06-02] MEDS: ASPIRIN 81 MG TAB PO SCH (08:15)
[2019-06-02] MEDS: GABAPENTIN 300 MG CAP PO SCH (08:18)
[2019-06-02] MEDS: AMLODIPINE 5 MG TAB PO SCH (08:18)
--- NOTE | 2019-06-02 09:50 | PN ---
Date/Time of Note Date/Time of Note DATE: 06/02/19 TIME: 09:50 Assessment/Plan VTE Prophylaxis Risk score (from Ns)>0 risk: 3 SCD applied (from Ns): Yes Pharmacological prophylaxis: NA/contraindicated Pharm contraindication: low risk/ambulating Lines/Catheters IV Catheter Type (from Nrsg): [place] Urinary Cath still in place: No Assessment/Plan Assessment/Plan 1. NSTEMI - pain resolved - mildly elevated trops are trending down - Plans for stress test today - Cardiology consultation appreciated and will continue on aspirin, BB, and statin - ECHO resulted noted with EF 55-60% - CTA negative for acute issues 2. Headache with neck pain, stable - plans for outpatient MRI and PCP follow up 3. HTN - stable - continue home medications 4. GERD - PPI 5. Anemia - stable 6. Disposition - plans for stress test today Result Diagram: 06/02/1952306/02/19523 Results 24hrs Laboratory Tests Test 06/02/19 05:24 White Blood Count 8.0 Red Blood Count 4.06 L Hemoglobin 11.1 L Hematocrit 32.7 L Mean Corpuscular Volume 80.5 L Mean Corpuscular Hemoglobin 27.3 L Mean Corpuscular Hemoglobin Concent 33.9 Red Cell Distribution Width 13.4 Platelet Count 305 Mean Platelet Volume 9.6 Immature Granulocytes % 0.200 Neutrophils % 50.7 Lymphocytes % 35.4 Monocytes % 10.0 Eosinophils % 2.7 Basophils % 1.0 Nucleated Red Blood Cells % 0.0 Immature Granulocytes # 0.020 Neutrophils # 4.1 Lymphocytes # 2.9 Monocytes # 0.8 Eosinophils # 0.2 Basophils # 0.1 Nucleated Red Blood Cells # 0.0 Sodium Level 136 Potassium Level 3.5 Chloride Level 100 Carbon Dioxide Level 30 Anion Gap 6 Blood Urea Nitrogen 19 Creatinine 0.86 Est Glomerular Filtrat Rate mL/min Glucose Level 101 Calcium Level 8.7 Phosphorus Level 3.6 Magnesium Level 2.0 Subjective 24 Hr Interval Summary Free Text/Dictation Patient denies any chest pain or shortness of breath. Daughter at bedside and plan of care discussed. Stress test today. Exam/Review of Systems Exam Vitals Vital Signs Date Temp Pulse Resp B/P (MAP) Pulse Ox O2 O2 Flow FiO2 Time Delivery Rate 06/02/19 98.3 63 18 121/57 94 Room Air 07:18 (78) Intake and Output 06/01/19 06/01/19 06/02/19 1515:00 23:00 07:00 IntakeIntake Total 730 ml 850 ml BalanceBalance 730 ml 850 ml Exam General: Patient is laying in bed and answers questions appropriately. no distre ss noted Eyes: EOMI, pupils reactive to light Neck: Supple Respiratory: Clear to auscultation bilaterally. no wheezing or rhonchi Cardiovascular: regular rate and rhythm, no obvious murmurs Gastrointestinal: soft, non-tender to palpation, nondistended, bowel sounds heard. Neurological: Moves all extremities spontaneously Results Results 24hrs Laboratory Tests Test 06/02/19 05:24 White Blood Count 8.0 Red Blood Count 4.06 L Hemoglobin 11.1 L Hematocrit 32.7 L Mean Corpuscular Volume 80.5 L Mean Corpuscular Hemoglobin 27.3 L Mean Corpuscular Hemoglobin Concent 33.9 Red Cell Distribution Width 13.4 Platelet Count 305 Mean Platelet Volume 9.6 Immature Granulocytes % 0.200 Neutrophils % 50.7 Lymphocytes % 35.4 Monocytes % 10.0 Eosinophils % 2.7 Basophils % 1.0 Nucleated Red Blood Cells % 0.0 Immature Granulocytes # 0.020 Neutrophils # 4.1 Lymphocytes # 2.9 Monocytes # 0.8 Eosinophils # 0.2 Basophils # 0.1 Nucleated Red Blood Cells # 0.0 Sodium Level 136 Potassium Level 3.5 Chloride Level 100 Carbon Dioxide Level 30 Anion Gap 6 Blood Urea Nitrogen 19 Creatinine 0.86 Est Glomerular Filtrat Rate mL/min Glucose Level 101 Calcium Level 8.7 Phosphorus Level 3.6 Magnesium Level 2.0 Medications Medication Current Medications Amlodipine Besylate (Norvasc) 5 mg DAILY PO Last administered on 06/02/19at 08:18; Admin Dose 5 MG; Start 06/01/19 at 09:00 Carvedilol (Coreg) 3.125 mg BID PO Last administered on 06/02/19 08:18; Admin Dose 3.125 MG; Start 05/31/19 at 21:00 Doxazosin Mesylate (Cardura) 2 mg HS PO Last administered on 06/01/19 20:36; Admin Dose 2 MG; Start 05/31/19 at 21:00 Ferrous Sulfate (Ferrous Sulfate (Ec)) 325 mg DAILY PO Last administered on 06/02/19 08:14; Admin Dose 325 MG; Start 06/01/19 at 09:00 Gabapentin (Neurontin) 300 mg DAILY PO Last administered on 06/02/19 08:18; Admin Dose 300 MG; Start 06/01/19 at 09:00 Hydrochlorothiazide (Hydrochlorothiazide) 25 mg DAILY PO Last administered on 06/02/19 08:14; Admin Dose 25 MG; Start 06/01/19 at 09:00 Montelukast Sodium (Singulair) 10 mg QHS PO Last administered on 06/01/19 20:31; Admin Dose 10 MG; Start 05/31/19 at 21:00 Pantoprazole (Protonix Tab) 40 mg AC BREAKFAST PO Last administered on 06/02/19 05:59; Admin Dose 40 MG; Start 06/01/19 at 07:00 IV Flush (NS 3 ml) 3 ml PER PROTOCOL IV ; Start 05/31/19 at 10:30 Ondansetron HCl (Zofran Inj) 4 mg Q6H PRN IV NAUSEA/VOMITING; Start 05/31/19 at 10:30 Acetaminophen (Tylenol Tab) 650 mg Q6H PRN PO .PAIN 1-3 OR TEMP; Start 05/31/19 at 10:30 Acetaminophen/ Hydrocodone Bitart ([place] (5/325)) 1 tab Q6H PRN PO .PAIN 4-6; Start 05/31/19 at 10:30 Morphine Sulfate (morphine) 2 mg Q4H PRN IV .PAIN 7-10; Start 05/31/19 at 10:30 Aspirin (Aspirin) 81 mg DAILY PO Last administered on 06/02/19 08:15; Admin Dose 81 MG; Start 06/01/19 at 09:00 Atorvastatin Calcium (Lipitor) 80 mg HS PO Last administered on 06/01/19 20:31; Admin Dose 80 MG; Start 05/31/19 at 21:00 Sodium Chloride 1,000 ml @ 70 mls/hr [id number] IV Last administered on 06/01/19 23:43; Admin Dose 70 MLS/HR; Start 06/01/19 at 12:30 YOAN BOWIE MD Jun 02, 2019 09:50
[2019-06-02] MEDS ORDERED: REGADENOSON 0.4 MG/5 ML SYG ONE (10:46)
--- NOTE | 2019-06-02 11:12 | CONS ---
Assessment/Plan Assessment/Plan Hospital Course (Demo Recall) IMP: 1.Nstemi-minimal elevation. No activ chest pain. Nl EF by echo this admit 2.HTN 3.PAD 4.GERD 5.H/O CVA Recc: -Tele -serial ecg's -Continue coreg/norvasc -Continue asa/statin -Lexiscan stres test today to assess significance of minimally positive troponin's Consultation Date/Type/Reason Admit Date/Time Jun 01, 2019 at 11:24 Initial Consult Date 06/01/19 Type of Consult Cardiology Reason for Consultation nstemi Requesting Provider: KALLI AVILA MD Date/Time of Note DATE: 06/02/19 TIME: 11:09 Exam/Review of Systems Vital Signs Vitals Vital Signs Date Temp Pulse Resp B/P (MAP) Pulse Ox O2 O2 Flow FiO2 Time Delivery Rate 06/02/19 98.3 63 18 121/57 94 Room Air 07:18 (78) Intake and Output 06/01/19 06/01/19 06/02/19 1515:00 23:00 07:00 IntakeIntake Total 730 ml 850 ml BalanceBalance 730 ml 850 ml Exam Exam Review of Systems: CONSTITUTIONAL: No fevers, chills. PULMONARY: No sob CARDIOVASCULAR: No chest pain/palpitations GASTROINTESTINAL: No nausea/vomiting. GENITOURINARY: No hematuria/dysuria. MUSCULOSKELETAL: No myagias/arthalgias. PSYCHIATRIC: The patient denies depression. NEUROLOGIC: No weakness Constitutional: alert Psych: no complaints Head: normocephalic ENMT: mucosa pink and moist Neck: supple, jvd (9 cm water) Cardiovascular: regular rate and rhythm Gastrointestinal: soft, non-tender Musculoskeletal: muscle tone (normal) Extremities: edema (none) Neurological: other (No focal deficits) Labs Result Diagram: 06/02/19 0524 06/02/19 0524 Results 24hrs Laboratory Tests Test 06/02/19 05:24 White Blood Count 8.0 Red Blood Count 4.06 L Hemoglobin 11.1 L Hematocrit 32.7 L Mean Corpuscular Volume 80.5 L Mean Corpuscular Hemoglobin 27.3 L Mean Corpuscular Hemoglobin Concent 33.9 Red Cell Distribution Width 13.4 Platelet Count 305 Mean Platelet Volume 9.6 Immature Granulocytes % 0.200 Neutrophils % 50.7 Lymphocytes % 35.4 Monocytes % 10.0 Eosinophils % 2.7 Basophils % 1.0 Nucleated Red Blood Cells % 0.0 Immature Granulocytes # 0.020 Neutrophils # 4.1 Lymphocytes # 2.9 Monocytes # 0.8 Eosinophils # 0.2 Basophils # 0.1 Nucleated Red Blood Cells # 0.0 Sodium Level 136 Potassium Level 3.5 Chloride Level 100 Carbon Dioxide Level 30 Anion Gap 6 Blood Urea Nitrogen 19 Creatinine 0.86 Est Glomerular Filtrat Rate mL/min Glucose Level 101 Calcium Level 8.7 Phosphorus Level 3.6 Magnesium Level 2.0 Medications Medications Current Medications Amlodipine Besylate (Norvasc) 5 mg DAILY PO Last administered on 06/02/19 08:18; Admin Dose 5 MG; Start 06/01/19 at 09:00 Carvedilol (Coreg) 3.125 mg BID PO Last administered on 06/02/19 08:18; Admin Dose 3.125 MG; Start 05/31/19 at 21:00 Doxazosin Mesylate (Cardura) 2 mg HS PO Last administered on 06/01/19 20:36; Admin Dose 2 MG; Start 05/31/19 at 21:00 Ferrous Sulfate (Ferrous Sulfate (Ec)) 325 mg DAILY PO Last administered on 06/02/19 08:14; Admin Dose 325 MG; Start 06/01/19 at 09:00 Gabapentin (Neurontin) 300 mg DAILY PO Last administered on 06/02/19 08:18; Admin Dose 300 MG; Start 06/01/19 at 09:00 Hydrochlorothiazide (Hydrochlorothiazide) 25 mg DAILY PO Last administered on 06/02/19 08:14; Admin Dose 25 MG; Start 06/01/19 at 09:00 Montelukast Sodium (Singulair) 10 mg QHS PO Last administered on 06/01/19 20:31; Admin Dose 10 MG; Start 05/31/19 at 21:00 Pantoprazole (Protonix Tab) 40 mg AC BREAKFAST PO Last administered on 06/02/19 05:59; Admin Dose 40 MG; Start 06/01/19 at 07:00 IV Flush (NS 3 ml) 3 ml PER PROTOCOL IV ; Start 05/31/19 at 10:30 Ondansetron HCl (Zofran Inj) 4 mg Q6H PRN IV NAUSEA/VOMITING; Start 05/31/19 at 10:30 Acetaminophen (Tylenol Tab) 650 mg Q6H PRN PO .PAIN 1-3 OR TEMP; Start 05/31/19 at 10:30 Acetaminophen/ Hydrocodone Bitart ([place] (5/325)) 1 tab Q6H PRN PO .PAIN 4-6; Start 05/31/19 at 10:30 Morphine Sulfate (morphine) 2 mg Q4H PRN IV .PAIN 7-10; Start 05/31/19 at 10:30 Aspirin (Aspirin) 81 mg DAILY PO Last administered on 06/02/19at 08:15; Admin Dose 81 MG; Start 06/01/19 at 09:00 Atorvastatin Calcium (Lipitor) 80 mg HS PO Last administered on 06/01/19at 20:31; Admin Dose 80 MG; Start 05/31/19 at 21:00 Sodium Chloride 1,000 ml @ 70 mls/hr [id number] IV Last administered on 06/01/19at 23:43; Admin Dose 70 MLS/HR; Start 06/01/19 at 12:30 KELLI MORFIN Jun 02, 2019 11:12
--- NOTE | 2019-06-02 12:03 | CARRPT ---
DATE OF PROCEDURE: 06/02/2019 REASON FOR STRESS TESTING: Positive troponin, assess significance. BASELINE VITAL SIGNS AND ELECTROCARDIOGRAM: Pulse 64, blood pressure 150/74. Electrocardiogram was sinus rhythm at a rate of 64, first degree AV block, IVCD, secondary repolarization abnormalities, an terior T-wave inversions. PROCEDURE: The patient underwent standard Lexiscan infusion protocol over 10 seconds followed by rad iolabeled tracer. The patient's test was stopped due to completion of protocol. Maximal achieved bl ood pressure during the test, 129/62. Maximum heart rate during the test 95. ELECTROCARDIOGRAM FINDINGS: The patient did not develop any new Lexiscan-induced ST or T-wave change s from baseline abnormalities. No documented PVCs. SYMPTOMS: The patient had no complaints of chest pain or shortness of breath during stress testing. IMPRESSION: 1. No Lexiscan-induced ST or T-wave changes from baseline abnormalities diagnostic of cardiac ischem ia. 2. No complaints of chest pain or shortness of breath during stress testing. 3. No documented premature ventricular contractions during stress testing. 4. Report of nuclear images to follow in separate dictation. Dictated By: KELLI LINDSEY/NTS Conf#: [id number] DID#: [id number] CC: ANGIE MARCOS MD;*EndCC*
[2019-06-02] MEDS ORDERED: CLOPIDOGREL 75 MG TAB PO SCH (14:30)
[2019-06-02 15:31] VITALS: BP 114/55; PULSE 64; RESP 18
[2019-06-02] MEDS ORDERED: ATOR-2 PO (15:48)
[2019-06-02] MEDS ORDERED: CLOP75TA28 PO (15:48)
--- NOTE | 2019-06-02 15:53 | PDOCDIS ---
Discharge Instructions DIAGNOSIS Discharge Diagnosis 1. NSTEMI 2. Headache with neck pain, stable 3. HTN 4. GERD 5. Anemia, iron deficiency CONDITION [id number] Patient Condition: [id number] Stable HOME CARE INSTRUCTIONS: [id number] Diet Instructions: Cayxs8d Low Fat /Cholesterol ACTIVITY: Pvyux4Du Activity Restrictions: Rloel4q No Restrictions FOLLOW UP/APPOINTMENTS Follow-up Plan 1. Follow up with your Primary care physician in 1-2 weeks 2. Follow up with Dr. Cottrell next week. Please call his office to schedule an appointment as soon as possible 3. You were started on Plavix which does cause blood to take longer to clot. If experiencing any deep cuts or head trauma, please go to your nearest emergency department 4. Continue all other medications as prescribed 5. If experiencing any concerning symptoms. please go to your nearest emergency department YOAN BOWIE MD Jun 02, 2019 15:53
--- NOTE | 2019-06-02 19:40 | DS ---
Date/Time of Note Date/Time of Note DATE: 06/02/19 TIME: 18:55 Discharge Summary Admission/Discharge Info Admit Date/Time Jun 01, 2019 at 11:24 Discharge Date/Time 06/02/19 Discharge Diagnosis 1. NSTEMI 2. Headache with neck pain, stable 3. HTN 4. GERD 5. Anemia, iron deficiency Patient Condition: Stable Consults Cardiology- Dr. Cottrell Procedures PROCEDURE: Nuclear medicine myocardial perfusion scan CLINICAL INDICATION: Chest pain TECHNIQUE: 26.3 mCi of technetium 99m Cardiolite was administered for the stress study. 8.5 mCi of technetium 99m Cardiolite was administered for the resting study. The patient was stressed with 0.4 mg of Lexiscan. Images were reviewed in the short axis, vertical long axis, and horizontal long axis views. Wall motion was assessed and ejection fraction was calculated as well. Images were reviewed on a high-resolution PACS workstation. COMPARISON: None available FINDINGS: Left ventricular size: Normal. Attenuation artifact: Moderate. Stress images: Large area of diminished perfusion along the distal apical septal wall, involving both the anteroseptal wall and the inferoseptal wall. Rest images: Similar pattern. Wall motion: Distal apical septal wall hypokinesis. Ejection fraction: 62%. IMPRESSION: 1. 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 2. There is no evidence for reversible ischemia. 3. Distal apical septal wall hypokinesis with preserved ejection fraction of 62%. RPTAT: HMJB .Aamir Jhaveri MD, MD Date Time Electronically viewed and signed by .Aamir Jhaveri MD, on 06/02/2019 12:32 Hx of Present Illness Patient is a female with past medical history significant for hypertension, GERD, anemia who presents to [facility] for new onset chest pain with radiation to her left arm. Patient states that she woke this morning with sensation of left-sided chest pain subsequently radiated to her arm. Currently patient has minimal chest pain but with no residual arm effects. Of note patient recently did go to a primary care provider for a headache which has since significantly resolved. Patient denies any changes to her medications, diets or any new physical activity, patient denies severe shortness of breath, nausea, vomiting, abdominal pain, bowel or bladder dysfunction, and leg pain. Hospital Course Patient was admitted to telemetry for acute chest pain and given elevated troponins, Cardiology was consulted for further recommendations. She was started on aspirin and statin. Patient was evaluated by Cardiology and stress test was ordered. Troponins were trending down and chest pain resolved. Patient underwent stress test without any acute shortness of breath or chest pain. Results noted with old ischemic changes but no acute reversible ischemia. She was cleared for discharge home but recommended to start on Plavix prior to discharge given elevated trops. Patient was also instructed to follow up with Cardiology next week as well as PCP. Patients symptoms resolved and was discharged home in good condition. Home Meds Active Scripts Atorvastatin* (Atorvastatin*) 80 Mg Tablet, 80 MG PO HS for 30 Days, #30 TAB 1 Refill Prov:YOAN BOWIE MD 06/02/19 Clopidogrel Bisulfate (Clopidogrel) 75 Mg Tablet, 75 MG PO DAILY for 30 Days, #30 TAB 1 Refill Prov:YOAN BOWIE MD 06/02/19 Reported Medications Amlodipine Besylate* (Norvasc*) 5 Mg Tablet, 5 MG PO DAILY, TAB 05/31/19 Hydrochlorothiazide* (Hydrochlorothiazide*) 25 Mg Tab, 25 MG PO DAILY, #30 TAB 05/31/19 Ferrous Sulfate* (Ferrous Sulfate*) 325 Mg Tabec, 325 MG PO DAILY, TAB 05/31/19 Montelukast Sodium* (Montelukast Sodium*) 10 Mg Tablet, 10 MG PO QHS, #30 TAB 05/31/19 Pantoprazole* (Pantoprazole*) 40 Mg Tablet.dr, 40 MG PO AC BREAKFAST, TAB 05/31/19 Calcium Carbonate/Vitamin D3 (Calcium 500 mg Chewable Tablet) 1 Each Tab.chew, 1 EACH PO BID, TAB.CHEW 05/31/19 Carvedilol* (Carvedilol*) 3.125 Mg Tablet, 3.125 MG PO BID, #60 TAB 05/31/19 Gabapentin* (Gabapentin*) 300 Mg Capsule, 300 MG PO DAILY, #60 CAP 05/31/19 Alendronate Sodium* (Fosamax*) 70 Mg Tablet, 70 MG PO Q SAT, #4 TAB 05/31/19 Doxazosin Mesylate* (Doxazosin Mesylate*) 2 Mg Tablet, 2 MG PO HS, TAB 05/31/19 Discontinued Reported Medications Isosorbide Mononitrate* (Isosorbide Mononitrate*) 30 Mg Tab.er.24h, 30 MG PO DAILY, TAB 06/24/16 Hydralazine Hcl* (Hydralazine Hcl*) 50 Mg Tab, 100 MG PO TID, #180 TAB 06/24/16 Aspirin* (Aspirin*) 325 Mg Tablet, 325 MG PO DAILY, TAB 06/28/15 Ezetimibe* (Zetia*) 10 Mg Tablet, 10 MG PO DAILY, TAB 06/28/15 Calcium Carbonate/Vitamin D3 (Oysco 500+D Tablet) 1 Tab Tablet, 1 TAB PO BID 06/28/15 Verapamil Hcl* (Verelan*) 240 Mg Cap24h.pel, 240 MG PO DAILY, CAP 06/28/15 Dexlansoprazole (Dexilant) 60 Mg Cap.mp, 60 MG PO DAILY, CAP 06/28/15 Discontinued Scripts Acetaminophen* (Tylophen*) 500 Mg Capsule, 1 CAP PO Q6H PRN for PAIN AND OR ELEVATED TEMP, #20 CAP Prov:BETINA CHENG NP 10/25/16 Tramadol HCl (Tramadol HCl) 50 Mg Tablet, 50 MG PO Q6 PRN for SEVERE PAIN LEVEL 7-10, #20 TAB Prov:BETINA CHENG NP 10/25/16 Sucralfate* (Carafate*) 1 Gm Tab, 1 GM PO QID for GASTROINTESTINAL UPSET, #30 TAB Prov:VAMSHI CASILLAS MD 06/24/16 Naproxen* (Naprosyn*) 500 Mg Tablet, 500 MG PO BID PRN for PAIN AND/OR INFLAMMATION, #30 TAB Prov:VAMSHI CASILLAS MD 06/24/16 Acetaminophen* (Tylophen*) 500 Mg Capsule, 1 CAP PO Q6H PRN for PAIN AND OR ELEVATED TEMP, #20 CAP Prov:BETINA CHENG NP 05/17/16 Dicyclomine HCl (Dicyclomine HCl) 10 Mg Capsule, 10 MG PO QID, #20 CAP Prov:BETINA CHENG NP 05/17/16 Cephalexin* (Keflex*) 500 Mg Capsule, 500 MG PO Q6 for 7 Days, #28 CAP Prov:BETINA CHENG NP 05/17/16 Ibuprofen* (Motrin*) 600 Mg Tab, 600 MG PO Q8 for PAIN, #30 TAB Prov:ANGIE ONOFRE MD 03/11/16 Cephalexin* (Keflex*) 500 Mg Capsule, 500 MG PO TID for 5 Days, CAP Prov:ANGIE ONOFRE MD 03/11/16 Atorvastatin Calcium (Atorvastatin Calcium) 10 Mg Tab, 20 MG PO HS, #60 TAB Prov:THADDEUS DHILLON MD 06/30/15 Follow-up Plan 1. Follow up with your Primary care physician in 1-2 weeks 2. Follow up with Dr. Cottrell next week. Please call his office to schedule an appointment as soon as possible 3. You were started on Plavix which does cause blood to take longer to clot. If experiencing any deep cuts or head trauma, please go to your nearest emergency department 4. Continue all other medications as prescribed 5. If experiencing any concerning symptoms. please go to your nearest emergency department Primary Care Provider Not On Staff Doctor Time spent on discharge: > 30 minutes Pending Labs Laboratory Tests Test 06/02/19 05:24 White Blood Count 8.0 10^3/ul (4.8-10.8) Red Blood Count 4.06 10^6/ul (4.20-5.40) Hemoglobin 11.1 g/dl (12.0-16.0) Hematocrit 32.7 % (37.0-47.0) Mean Corpuscular Volume 80.5 fl (82.0-101.0) Mean Corpuscular Hemoglobin 27.3 pg (29.0-33.0) Mean Corpuscular Hemoglobin Concent 33.9 g/dl (32.0-37.0) Red Cell Distribution Width 13.4 % (11.5-14.5) Platelet Count 305 10^3/UL (140-415) Mean Platelet Volume 9.6 fl (7.4-10.4) Immature Granulocytes % 0.200 % (0.001-0.429) Neutrophils % 50.7 % (39.0-77.0) Lymphocytes % 35.4 % (15.0-51.0) Monocytes % 10.0 % (0.0-11.0) Eosinophils % 2.7 % (0.0-7.0) Basophils % 1.0 % (0.0-2.0) Nucleated Red Blood Cells % 0.0 /100WBC (0.0-0.0) Immature Granulocytes # 0.020 10^3/ul (0.0-0.031) Neutrophils # 4.1 10^3/ul (1.6-7.5) Lymphocytes # 2.9 10^3/ul (0.8-2.9) Monocytes # 0.8 10^3/ul (0.3-0.9) Eosinophils # 0.2 10^3/ul (0.0-0.5) Basophils # 0.1 10^3/ul (0.0-0.1) Nucleated Red Blood Cells # 0.0 10^3/ul (0.0-0.0) Sodium Level 136 mmol/L (135-144) Potassium Level 3.5 mmol/L (3.5-5.1) Chloride Level 100 mmol/L (97-110) Carbon Dioxide Level 30 mmol/L (21-31) Anion Gap 6 (5-13) Blood Urea Nitrogen 19 mg/dl (7-20) Creatinine 0.86 mg/dl (0.44-1.00) Est Glomerular Filtrat Rate mL/min mL/min (>60) Glucose Level 101 mg/dl (70-220) Calcium Level 8.7 mg/dl (8.4-10.2) Phosphorus Level 3.6 mg/dl (2.5-4.9) Magnesium Level 2.0 mg/dl (1.7-2.5) YOAN BOWIE MD Jun 02, 2019 19:40
== END 2019-06-02 18:25 | disposition home or self-care (01) | DRG 282 ==
LOC: E/R 08:03 → 6WM 10:17 → UNDOADMOB 10:17 → INTOOBSV 10:17 → SUATTDRO 10:21 → EDBEDREQ 10:26 → 6WM 10:27 → UNDOADMIN 10:27 → 6WM 15:28 → INTOOBSV 06-01 11:24 → OBSVTOIN 06-01 11:24
PROVIDERS: ADMIT Internal Medicine; ATTEND Internal Medicine
DX: I21.4 Non-ST elevation (NSTEMI) myocardial infarction (principal); R07.9 Chest pain, unspecified; R42 Dizziness and giddiness; I10 Essential (primary) hypertension; K21.9 Gastro-esophageal reflux disease without esophagitis; D64.9 Anemia, unspecified; M54.2 Cervicalgia; I44.0 Atrioventricular block, first degree; E78.5 Hyperlipidemia, unspecified; R51 Headache
CPT/HCPCS: 36415; 71045; 71275; 78452; 80048; 80053; 80061; 82550; 82553; 83036; 83735; 84100; 84443; 84484; 85025; 93005; 93017; 93306; G0378; A9500; A9505; J2785; Q9967